=== PATIENT | female | born 1980 | race Caucasian/White ===

== ENCOUNTER 2021-02-19 10:40 | Emergency (ER) | payer OTHER, MEDICARE ==
[~2021-02-19] VITALS: Ht 154.9 cm; Wt 56.7 kg
[2021-02-19 10:45] VITALS: BP 115/81
[2021-02-19] MEDS ORDERED: ALPRAZOLAM 1 MG TAB PO ONE (11:00)
[2021-02-19] MEDS ORDERED: HYDROCODONE/ACETAMINOPHEN 5/325 MG TAB PO ONE (11:00)
[2021-02-19] MEDS ORDERED: LIDOCAINE HCL 400MG/20ML VIAL ONE (11:01)
[2021-02-19] MEDS ORDERED: ALPRAZOLAM 1 MG TAB ONE (11:03)
[2021-02-19] MEDS ORDERED: HYDROCODONE/ACETAMINOPHEN 5/325 MG TAB ONE (11:04)
[2021-02-19] MEDS ORDERED: TETANUS/DIPHTHERIA TOXOID [ADULT] 0.5 ML VIAL IM ONE (11:10)
[2021-02-19] MEDS ORDERED: TETANUS/DIPHTHERIA TOXOID [ADULT] 0.5 ML VIAL IM SCH (11:30)
[2021-02-19] MEDS ORDERED: BACI3.5O22 OP (11:57)
[2021-02-19] MEDS ORDERED: IBUP-2077 PO (11:57)
== END 2021-02-19 12:24 | disposition home or self-care (01) ==
LOC: EDH 10:40
DX: S51.812A Laceration without foreign body of left forearm, initial encounter (principal); Z79.1 Long term (current) use of non-steroidal anti-inflammatories (NSAID); Z79.899 Other long term (current) drug therapy; M32.9 Systemic lupus erythematosus, unspecified; W25.XXXA Contact with sharp glass, initial encounter; Y93.89 Activity, other specified; Y92.89 Other specified places as the place of occurrence of the external cause; Y99.8 Other external cause status
CPT/HCPCS: 12002; 73090; 90471; 90714; 99283; J3490